=== PATIENT | female | born 1985 | race Hispanic/Latino ===

== ENCOUNTER 2019-04-11 14:22 | Emergency (ER) | payer OTHER ==
[2019-04-11] MEDS ORDERED: ACETAMINOPHEN EXTRA STRENGTH 500 MG TABLET ONE (15:42)
[2019-04-11] MEDS ORDERED: ONDANSETRON ODT 4 MG TAB ONE (16:40)
== END 2019-04-11 16:59 | disposition home or self-care (01) ==
LOC: EDH 14:22
DX: Z20.828 Contact with and (suspected) exposure to other viral communicable diseases (principal); R50.9 Fever, unspecified; Z90.49 Acquired absence of other specified parts of digestive tract; Z98.890 Other specified postprocedural states; Z72.0 Tobacco use
CPT/HCPCS: 87804; 87880